=== PATIENT | female | born 1940 | race American Indian/Alaskan Native ===

== ENCOUNTER 2018-08-07 09:03 | Day surgery (SDC) | payer MEDICARE ==
[~2018-08-07 09:03] MED LIST: NACL 0.9% 1000 ML 1,000 ML IV SCH
[2018-08-07] MEDS ORDERED: DIPRIVAN 10 MG/ML IV ONE (10:53)
--- NOTE | 2018-08-07 11:21 | Anesthesia Day of Surgery ---
Anesthesia Day of Surgery - Day of Surgery Patient Examined: Yes Patient H&P Reviewed: Yes Patient is NPO: Yes Beta Blockers: Yes
[2018-08-07] MEDS ORDERED: XYLOCAINE MPF 2% ONE (11:23)
--- NOTE | 2018-08-07 11:28 | Anesthesia Consultation ---
Anesthesia Consult and Med Hx Date of service: 08/07/18 - Airway Anesthetic Teeth Evaluation: Dentures (upper. Missing left upper incisor) ROM Head & Neck: Adequate Mental/Hyoid Distance: Adequate Mallampati Class: Class II Intubation Access Assessment: Probably Good - Pulmonary Exam CTA: Yes - Cardiac Exam Cardiac Exam: RRR - Pre-Operative Health Status ASA Pre-Surgery Classification: ASA3 Proposed Anesthetic Plan: General - Pulmonary Hx Smoking: No SOB: Yes (SHORT OF BREATH) Hx Sleep Apnea: Yes (screen) - Cardiovascular System Hx Hypertension: Yes (CHF.) Hx Coronary Artery Disease: Yes (cardiomyopathy) Hx Heart Attack/AMI: Yes Hx Cardia Arrhythmia: Yes (SVT) Hx Pacemaker: Yes (LEFT UPPER CHEST) Hx Internal Defibrillator: Yes (1 ST ONE PLACED ON01-31-08 AND EXCHANGED ON 09-17) - Central Nervous System Hx Neuromuscular Disorder: Yes (GOUT, wheelchair bound) Hx Psychiatric Problems: No - Endocrine Hx Non-Insulin Dependent Diabetes: Yes (diet) - Other Systems Hx Cancer: No Hx Obesity: Yes - Additional Comments Anesthesia Medical History Comments: RA. Gout, Headache. Denies chest pain, SOB
--- NOTE | 2018-08-07 11:32 | Operative Report ---
Operative Report Operative Report: Date: 08/07/2018 Operative Report: Date of procedure: 08/07/2018 Procedure: Esophagogastroduodenoscopy with wire guided Savory dilation of the esophagus. Multiple mucosal biopsies. Attending physician: Noah Caldera MD Elevator Attendant: Noah Caldera MD Indication: Patient is a 77 -year-old female who presented with a history of epigastric pain, dysphagia and indigestion and heartburn. An upper endoscopy is done to evaluate patient, so that treatment may be directed based on the findings. Consent: Informed consent was obtained after advising the patient and family regarding nature of this procedure, its indications, potential benefits as well as possible complications including but not limited to bleeding perforation and adverse reaction to medication, infection as well as other cardiopulmonary complications. An informed written and verbal consent was then obtained after due opportunity was provided for questions and answers. Monitoring: Patient was monitored continuously with pulse oximetry and electrocardiographic recordings as well as blood pressure recordings. Vital signs remained stable throughout this procedure with no untoward events. Preoperative assessment: Patient was assessed immediately prior to this procedure for capacity to tolerate monitored anesthesia care and moderate sedation as well as general anesthesia. Patient's ASA classification is 3, Mallampati class is 2, Hyomental distance is 3. Instrument: [employer] video endoscope Savory Dilators Medications: Propofol given intravenously in divided doses. For details please refer to anesthesia records. Description of procedure: Patient was placed in the left lateral decubitus position after achieving sedation, the endoscope was introduced into the esophagus under direct vision and advanced into the stomach. It was further advanced to the second portion of the duodenum. It was subsequently withdrawn with careful inspection of all mucosal surfaces with the following findings. Findings: Esophagus was very tortuous but with no luminal constriction. Because of progressive dysphagia, esophagus was dilated using a guidewire which savory dilators from 42 Slov[place] to 45 Slovak. Patient tolerated procedure well.. There were multiple erosions in the gastric antrum and body. Several biopsies were obtained from the antrum for histopathology. There were several superficial ulcers seen in the duodenum. In all there were more than 20 of these ulcers. Several biopsies were obtained from the duodenum. The second portion of the duodenum was normal. Impression: Tortuous esophagus status post dilation using savory dilator with a guidewire. Erosive gastritis. Multiple duodenal ulcers Severe erosive duodenitis Plan: Continue treatment with proton pump inhibitors. Maintain antireflux measures. Follow pathology report and direct additional treatment based on the pathology report. Avoid non-steroidal use as needed. Consider repeat endoscopy in 2-3 months to check for healing of the duodenal ulcers.
--- NOTE | 2018-08-07 11:33 | Discharge Summary ---
Short Stay Discharge Plan Activity: advance as tolerated Weight Bearing Status: Weight Bear as Tolerated Diet: regular Follow up with: STEFANY RENTERIA MD [Primary Care Provider] - 7 Days
[2018-08-07 11:55] VITALS: BP 122/18
== END 2018-08-07 09:04 | disposition home or self-care (01) ==
LOC: GIO 09:03
PROVIDERS: ATTEND Internal Medicine Gastroenterology
DX: K29.80 Duodenitis without bleeding (principal); K26.9 Duodenal ulcer, unspecified as acute or chronic, without hemorrhage or perforation; K30 Functional dyspepsia; E11.9 Type 2 diabetes mellitus without complications; M06.9 Rheumatoid arthritis, unspecified; K22.2 Esophageal obstruction; G47.30 Sleep apnea, unspecified; K21.9 Gastro-esophageal reflux disease without esophagitis; I11.0 Hypertensive heart disease with heart failure; I50.9 Heart failure, unspecified; I25.2 Old myocardial infarction; E66.9 Obesity, unspecified; Z68.39 Body mass index [BMI] 39.0-39.9, adult; Z95.0 Presence of cardiac pacemaker; Z90.710 Acquired absence of both cervix and uterus; Z88.8 Allergy status to other drugs, medicaments and biological substances; Z79.82 Long term (current) use of aspirin; Z79.899 Other long term (current) drug therapy; Z98.49 Cataract extraction status, unspecified eye; Z98.890 Other specified postprocedural states
CPT/HCPCS: 43239; 43248; 82962; 88305; 88342; J2704; J7030